=== PATIENT | female | born 1990 | race Caucasian/White ===

== ENCOUNTER 2021-10-22 15:07 | Emergency (ER) | payer OTHER, SELFPAY ==
[2021-10-22 15:50] VITALS: BP 162/116; PULSE 135; RESP 20; TEMP 36.9; O2SAT 98
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
[2021-10-22] MEDS: cloNIDine HCL 0.2 MG TABLET PO (16:17)
--- NOTE | 2021-10-22 16:50 | PC.NURSE ---
1535 CALL FOR HELP CALLED 1536 MEDS FOR [facility] CALLED 1540 [place] [employer] CALLED 1555 KEISHA CALLED FOR TRANSFER LUCIA HACKETT CALLED AND DR CHRISTIN JASSO CALLED
== END 2021-10-22 16:22 | disposition short-term general hospital (02) ==
PROVIDERS: Emergency Provider Emergency Medicine
DX: T76.21XA Adult sexual abuse, suspected, initial encounter (principal); I10 Essential (primary) hypertension
CPT/HCPCS: 99285; A9270

== ENCOUNTER 2021-10-22 16:57 | Emergency (ER) | payer OTHER, SELFPAY ==
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
--- NOTE | 2021-10-22 17:01 | PC.NURSE ---
ISP officer given charge phone # and this RN name and dry boss insulation cupola charger name. ISP officer requesting to go into room and do his report. ISP officer not allowed into pt room d/t [employer] being present in room at the time and having started exam. ISP officer gave number to call when pt available. #[phone]
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
[2021-10-22 17:23] VITALS: BP 161/135; PULSE 124; RESP 16; TEMP 36.6; O2SAT 99
--- NOTE | 2021-10-22 17:25 | PC.NURSE ---
Provider and staff writer introduced themselves to patient and SANE nurse. Patient denies any questions, SANE nurse also denies any needs or questions at this time from staff writer.
--- NOTE | 2021-10-22 19:07 | PC.NURSE ---
Patient report given to Laura, RN. All questions answered at this time. SHARON nurse still at bedside at this time.
--- NOTE | 2021-10-22 20:16 | PC.NURSE ---
SANE in still in room with patient.
[2021-10-22] MEDS: DOXYCYCLINE HYCLATE 100 MG TABLET PO (21:57)
[2021-10-22] MEDS: levonorgestreL 1.5 MG TABLET PO (21:57)
[2021-10-22] MEDS: ONDANSETRON HCL ODT 4 MG TABLET PO (21:58)
[2021-10-22] MEDS: cefTRIAXone 1 GM VIAL 0.5 GM IM (21:58)
[2021-10-22] MEDS: metroNIDAZOLE 250 MG TABLET 2000 MG PO (21:58)
[2021-10-22 23:10] LABS: Hepatitis B Surface Antigen Negative (Negative)
[2021-10-22 23:16] LABS: HAV RESULT Negative (Negative); Hepatitis B Core IgM Result Negative (Negative)
--- NOTE | 2021-10-22 23:20 | PC.NURSE ---
[employer] cab voucher for pt to address provided by pt.
[2021-10-22 23:28] LABS: Hepatitis C Virus Antibody Negative (Negative)
--- NOTE | 2021-10-22 23:34 | PC.NURSE ---
Pt notified of [facility] coming for pickup. Escorted to waiting room by this RN at pt's request. identification and records commander notified of transportation arrival.
== END 2021-10-22 23:35 | disposition home or self-care (01) ==
PROVIDERS: Emergency Provider Nurse Practitioner Family; PCP Internal Medicine
DX: T74.21XA Adult sexual abuse, confirmed, initial encounter (principal); Y07.9 Unspecified perpetrator of maltreatment and neglect
CPT/HCPCS: 36415; 80074; 87491; 87591; 87661; 87808; 96372; 99285; A9270; J0696

== ENCOUNTER 2022-10-18 00:43 | Emergency (ER) | payer OTHER, SELFPAY ==
--- NOTE | ~2022-10-18 | CT_ITS ---
CT Facial Bones and Cervical Spine Clinical Indication: Trauma Technique: Contiguous axial scans were obtained through the facial bones and cervical spine followed by coronal and sagittal reconstructions. Dose reduction technique was used on this scan by utilizing automated exposure control and iterative reconstruction technique. The dose-length product (DLP) was 237.65 mGy-cm. Findings: CT facial bones: No fractures are identified. The visualized paranasal sinuses are clear. Intraorbita l soft tissues appear normal. CT cervical spine: There is mild reversal of the normal cervical lordosis. No fractures or subluxatio n. Unremarkable visualized bony structures are otherwise. There is mild degenerative disc narrowing at C5-C6. No prevertebral soft tissue swelling. Impression: No fracture is seen in the facial bones. No fracture or subluxation of the cervical spine. Reviewed, dictated and finalized at [facility]. Impression: No fracture is seen in the facial bones. No fracture or subluxation of the cervical spine.
--- NOTE | ~2022-10-18 | CT_ITS ---
Non-contrast Head CT History: Head injury COMPARISON: 03/18/2018 Technique: Axial non-contrast imaging of the brain was performed. Dose reduction technique was used on this scan by utilizing automated exposure control and iterative reconstruction technique. The dose -length product (DLP) was 681.00 mGy-cm. Findings: There is no evidence of intracranial hemorrhage, mass lesion, or acute infarct. Brain par enchyma appears normal. The ventricles and subarachnoid spaces are normal in size. The calvarium ap pears normal. The visualized paranasal sinuses and mastoid air cells are clear. Impression: No significant abnormality seen. Reviewed, dictated and finalized at location . Impression: No significant abnormality seen.
--- NOTE | ~2022-10-18 | XR_ITS ---
AP view of the pelvis Clinical history: Pain Findings: No acute fracture or dislocation is seen. Osseous alignment is anatomic. Bilateral hip and SI joint spaces are preserved. Soft tissues are unremarkable. Impression: No significant abnormality is seen. Reviewed, dictated and finalized at location M. Impression: No significant abnormality is seen.
[2022-10-18 00:45] VITALS: BP 148/120; PULSE 126; RESP 20; TEMP 36.6; O2SAT 97
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
[2022-10-18 01:27] LABS: Basophils Absolute Auto 0.06 K/mm3 (0.00-0.10); Basophils Percent Auto 0.8 % (0.0-1.0); Eosinophils Absolute Auto 0.08 K/mm3 (0.02-0.50); Eosinophils Percent Auto 1.1 % (1.0-6.0); Hematocrit 40.6 % (35.0-49.0); Hemoglobin 12.4 g/dL (12.0-15.0); Immature Granulocyte Absolute 0.03 K/mm3 (0.00-0.00); Immature Granulocyte Percent A 0.4 % (0.0-0.0); Lymphocytes Absolute Auto 2.72 K/mm3 (1.10-4.50); Lymphocytes Percent Auto 35.8 % (18.0-42.0); Mean Corpuscular HGB Conc 30.5 g/dL (32.0-36.0); Mean Corpuscular Hemoglobin 22.4 pg (27.0-31.0); Mean Corpuscular Volume 73.3 fL (78.0-102.0); Mean Platelet Volume 9.9 fl (9.2-11.8); Monocytes Absolute Auto 0.86 K/mm3 (0.10-0.90); Monocytes Percent Auto 11.3 % (2.0-11.0); Neutrophils Absolute Auto 3.9 K/mm3 (1.7-7.2); Neutrophils Percent Auto 50.6 % (50.0-70.0); Platelet Count Result 440 K/mm3 (150-420); Red Blood Count 5.54 M/mm3 (4.20-5.40); Red Cell Distribution Width 19.2 % (11.6-14.4); White Blood Count 7.6 K/mm3 (4.8-10.8)
[2022-10-18 01:28] LABS: Appearance Urine Slightly Cloudy (Clear); Bilirubin Urine Negative (Negative); Blood Urine 3+ (Negative); Color Urine Yellow (Yellow); Glucose Urine UA Negative (Negative); Ketones Urine Negative (Negative); Leukocyte Esterase Ur 1+ LEU/UL (Negative); Nitrate Urine Negative (Negative); Protein Urine 2+ (Negative); Specific Grav Ur >= 1.030 (1.010-1.020)
[2022-10-18 01:39] LABS: Add Urine Microscopic? YES; RBC Urine 21-50 /hpf (0-2); Squamous Epithelial Cell Urine Moderate /hpf (Few); WBC Urine 31-50 /hpf (0-3)
[2022-10-18 01:40] LABS: Bacteria Urine 2+ /hpf; Mucus Urine Few /lpf
[2022-10-18 01:41] LABS: Pregnancy On Board Control Positive; Urine Pregnancy Test Negative
[2022-10-18 01:56] LABS: Lactic Acid Reflex 2.1 mmol/L (0.4-2.0)
[2022-10-18 01:57] LABS: Alanine Aminotransferase 30 U/L (14-59); Albumin Level 3.9 g/dL (3.4-5.0); Alkaline Phosphatase 93 U/L (46-116); Anion Gap 17 mmol/L (8-16); Aspartate Amino Transferase 28 U/L (15-37); Bilirubin,Total 0.3 mg/dL (0.00-1.00); Blood Urea Nitrogen 14 mg/dL (7-18); Calcium 9.1 mg/dL (8.5-10.1); Carbon Dioxide 24 mmol/L (21-32); Chloride 102 mmol/L (98-108); Estimated CRCL calculation 59 ml/min; Estimated Glomerular Filt Rate > 60; Glucose 97 mg/dL (70-99); Osmolality Calculated 296 mOsm/kg (285-295); Potassium 2.6 mmol/L (3.5-5.1); Sodium 143 mmol/L (136-145); Total Protein 9.2 g/dL (6.4-8.2)
[2022-10-18 01:58] LABS: Creatine Kinase 194 U/L (26-192); Troponin I 5.7 ng/L (0.00-60.4)
[2022-10-18 01:59] LABS: Thyroid Stimulating Hormone 1.82 uIU/mL (0.36-3.74)
[2022-10-18] MEDS: VERAPAMIL HCL ER 120 MG TABLET 240 MG PO (02:07)
[2022-10-18] MEDS: POTASSIUM CHLORIDE 20 MEQ ER TABLET 40 MEQ PO (02:12)
[2022-10-18] MEDS: SULFAMETHOXAZOLE/TRIMETHOPRIM 800/160 MG DS TABLET 1 TAB PO (02:12)
[2022-10-18] MEDS: LACTATED RINGERS 1,000 ML 999 ML IV CONT ×2 (02:13→04:26)
[2022-10-18] MEDS: KCL 20 MEQ/SW 100 ML 100 ML 50 MEQ IVPB (02:13)
[2022-10-18 02:19] VITALS: BP 145/109; PULSE 78; RESP 20; O2SAT 97
--- NOTE | 2022-10-18 03:00 | PC.NURSE ---
Pt sleeping, VSS at this time, IVF running as per order.
[2022-10-18 03:56] VITALS: BP 147/100; PULSE 75; RESP 18; O2SAT 99
[2022-10-18] MEDS: SPIRONOLACTONE 25 MG TABLET PO (04:02)
[2022-10-18 04:24] LABS: Reflex Lactic Acid Yes or No Add Lactic
[2022-10-18 04:27] LABS: Magnesium 1.7 mg/dL (1.8-2.4)
[2022-10-18 04:28] LABS: Potassium 3.3 mmol/L (3.5-5.1)
[2022-10-18] MEDS: MAGNESIUM SULF 2 GM/WATER 50ML 2 GM/50 ML BAG IVPB (04:36)
[2022-10-18 04:41] LABS: Lactic Acid 1.6 mmol/L (0.4-2.0)
[2022-10-18 05:34] VITALS: BP 141/100; PULSE 78; RESP 20; O2SAT 82
--- NOTE | 2022-10-21 17:55 | PC.NURSE ---
Final urine culture report, Patient discharged on Bactrim DS, culture is susceptible, no change in medication needed.
== END 2022-10-18 05:42 | disposition home or self-care (01) ==
PROVIDERS: Emergency Provider Internal Medicine Critical Care Medicine; PCP Internal Medicine
DX: S00.83XA Contusion of other part of head, initial encounter (principal); N30.00 Acute cystitis without hematuria; E87.8 Other disorders of electrolyte and fluid balance, not elsewhere classified; Y08.09XA Assault by strike by other specified type of sport equipment, initial encounter
CPT/HCPCS: 36415; 70450; 70486; 72125; 72170; 80053; 81001; 81025; 82550; 83605; 83735; 84132; 84443; 84484; 85025; 87077; 87086; 87088; 87186; 96365; 96366; 96367; 99284; A9270; J3475; J3480; J7120

== ENCOUNTER 2022-12-26 21:32 | Emergency (ER) | payer OTHER, SELFPAY ==
--- NOTE | ~2022-12-26 | CT_ITS ---
Noncontrast CT scan of the cervical spine Technique: Multiple contiguous axial [address] images of the cervical spine were obtained and rec onstructed in 2D sagittal and coronal planes on the acquisition scanner. Dose reduction technique was used on this scan by utilizing automated exposure control, adjustment of the mA and/or kV according to patient size. The dose-length product (DLP) was 335.42 mGy-cm. Clinical History: Pain Findings: No fractures or dislocations. There is mild reversal of the normal cervical lordosis. The intervertebral disc spaces are preserved. No prevertebral soft tissue swelling. Impression: No fracture or subluxation of the cervical spine. Mild reversal of the normal cervical lordosis. Reviewed, dictated and finalized at location . Impression: No fracture or subluxation of the cervical spine. Mild reversal of the normal cervical lordosis.
--- NOTE | ~2022-12-26 | XR_ITS ---
Right Hand Technique: PA, oblique, and lateral views were obtained. Clinical History: Pain Findings: No acute fracture or dislocation is seen. Osseous alignment is anatomic. Joint spaces are p reserved. Soft tissues are unremarkable. Impression: Unremarkable right hand. Reviewed, dictated and finalized at location M. Impression: Unremarkable right hand.
--- NOTE | ~2022-12-26 | CT_ITS ---
Non-contrast Head CT History: Head injury COMPARISON: 10/18/2022 Technique: Axial non-contrast imaging of the brain was performed. Dose reduction technique was used on this scan by utilizing automated exposure control and iterative reconstruction technique. The dose -length product (DLP) was 1362.00 mGy-cm. Findings: There is diffuse hypodensity involving predominantly the white matter in the right basal ga nglia and right frontal lobe. No acute intracranial hemorrhage identified. Questionable mild mass eff ect upon the right lateral ventricle, but no midline shift. The calvarium appears normal. The visual ized paranasal sinuses and mastoid air cells are clear. Impression: Extensive hypodensity involving predominantly the white matter in the right basal ganglia and right f rontal lobe, with questionable mild mass effect upon the right lateral ventricle. No intracranial hem orrhage evident. Pre and postcontrast MRI of the brain recommended for further evaluation. Reviewed, dictated and finalized at [facility]. Impression: Extensive hypodensity involving predominantly the white matter in the right bas al ganglia and right frontal lobe, with questionable mild mass effect upon the right lateral ventricle. No intracranial hemorrhage evident. Pre and postcontra st MRI of the brain recommended for further evaluation.
[2022-12-26 21:32] VITALS: PULSE 96; RESP 16; TEMP 36.7; O2SAT 99
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
[2022-12-27 00:46] LABS: Basophils Percent Auto 0.4 % (0.2-1.2); Eosinophils Absolute Auto 0.1 K/mm3 (0-0.3); Eosinophils Percent Auto 0.5 % (0-4.4); Hematocrit 37.1 % (37.0-47.0); Hemoglobin 11.4 g/dL (12.0-15.0); Immature Granulocyte Absolute 0.05 K/mm3 (0.00-0.031); Immature Granulocyte Percent A 0.4 % (0-0.5); Lymphocytes Absolute Auto 2.29 K/mm3 (0.9-3.2); Lymphocytes Percent Auto 20.4 % (18.3-44.2); Mean Corpuscular HGB Conc 30.7 g/dl (32-36); Mean Corpuscular Hemoglobin 24.4 pg (26-34); Mean Corpuscular Volume 79.4 fl (80-100); Mean Platelet Volume 10.6 fl (7.4-10.4); Monocytes Percent Auto 8.6 % (2.6-8.5); Neutrophils Absolute Auto 7.8 K/mm3 (1.3-6.7); Neutrophils Percent Auto 69.7 % (45.5-73.1); Platelet Count Result 321 k/mm3 (150-375); Red Blood Count 4.67 M/mm3 (4.2-5.4); Red Cell Distribution Width 18.2 % (11.5-14.5); White Blood Count 11.2 K/mm3 (4.5-10.0)
[2022-12-27 00:54] LABS: Anion Gap 12 mmol/L (8-16); Blood Urea Nitrogen 12 mg/dL (7-17); Calcium 8.4 mg/dL (8.4-10.2); Carbon Dioxide 19 mmol/L (22-30); Chloride 107 mmol/L (98-107); Estimated CRCL calculation 71 ml/min; Estimated Glomerular Filt Rate > 60; Glucose 85 mg/dL (65-110); Potassium 3.3 mmol/L (3.4-5.0); Sodium 138 mmol/L (137-145)
[2022-12-27 00:55] LABS: Ethanol 24 mg/dL (<10)
[2022-12-27] MEDS: ACETAMINOPHEN 500 MG TABLET 1000 MG PO (01:00)
--- NOTE | 2022-12-27 01:09 | ECG_ITS ---
Measurements Intervals [place] Rate: 70 P: 44 OH: 127 QRS: 1 QRSD: 96 T: 65 QT: 370 QTc: 399 Interpretive Statements SINUS RHYTHM WITH SINUS ARRHYTHMIA POSSIBLE LEFT ATRIAL ENLARGEMENT DELAYED PRECORDIAL R/S TRANSITION BORDERLINE ECG NO PREVIOUS ECG AVAILABLE FOR COMPARISON Electronically Signed On 12-27-2022 6:43:04 CDT by Andrey Pradhan D.O.
[2022-12-27 01:22] LABS: Magnesium 1.7 mg/dL (1.6-2.3)
[2022-12-27 02:45] LABS: Barbiturate Screen Urine Negative (Negative); Benzodiazepines Screen Urine Negative (Negative)
[2022-12-27] MEDS: POTASSIUM CHLORIDE 20 MEQ PACKET (FOR LIQUID) PO (02:55)
[2022-12-27 02:56] LABS: Cannabinoid Screen Urine Negative (Negative); Cocaine Screen Urine Negative (Negative); Methadone Screen Urine Negative (Negative); Opiate Screen Urine Negative (Negative); Phencyclidine Screen Urine Negative (Negative)
[2022-12-27 03:34] LABS: Pregnancy On Board Control Positive; Urine Pregnancy Test Negative
[2022-12-27 03:51] LABS: Amphetamine Screen Urine Positive (Negative)
[2022-12-27 07:01] VITALS: BP 169/123; PULSE 88; RESP 12; O2SAT 100
--- NOTE | 2022-12-27 07:19 | PC.NURSE ---
care coordination contacted regarding pts transportation home.
--- NOTE | 2022-12-27 07:31 | PCCCNOTE ---
Call received requesting transportation assistance for pt. She was evicted from her home and was to be out yesterday. She needs to return there and get her stuff, which may take a little time, and then plans to go to [place]. She can get a ride to [place] but doesn't have a ride home from here. Cab voucher for [address] [place] given to charge nurse.
== END 2022-12-27 08:28 | disposition home or self-care (01) ==
PROVIDERS: Emergency Provider Physician Assistant; PCP Internal Medicine
DX: S69.91XA Unspecified injury of right wrist, hand and finger(s), initial encounter (principal); S09.90XA Unspecified injury of head, initial encounter; F15.10 Other stimulant abuse, uncomplicated; R94.31 Abnormal electrocardiogram [ECG] [EKG]; Y04.2XXA Assault by strike against or bumped into by another person, initial encounter
CPT/HCPCS: 36415; 70450; 72125; 73130; 80048; 80307; 81025; 83735; 85025; 93005; 99284; A9270

== ENCOUNTER 2025-04-14 10:13 | Outpatient (CLI) | payer MEDICAID, SELFPAY ==
--- OUTSIDE RECORDS SUMMARY | 2025-04-14 10:31 | XMS_ITS | Clinical Summary ---
Author Organization [facility] Address [address] [place] [address] Care Team Providers Care Plastics Repairer Name Role Phone Nilson Ro MD Primary Care Provider [phone] Social History Tobacco Use Types Packs/Day Years Used Date Smoking Tobacco: Never Assessed Comments Unknown Sex and Gender Information Value Date Recorded Sex Assigned at Not on file Legal Sex Female 2:49 PM CDT Gender Identity Not on file Sexual Orientation Not on file Plan of Treatment Health Maintenance Due Date Last Done Comments Hepatitis C Virus (HCV) Screening 1990 Varicella Immunization (1 of 2 - 13+ 2-dose series) 12/11/2003 Hepatitis B Immunization (1 of 3 - 19+ 3-dose series) 2009 Pap Smear 12/11/2011 Cervical Cancer Screening (CCS) 2020 HPV/Cotest 2020 Influenza Immunization (#1) 2024 09/0 09/2017, 03/29/2015 SARS-COV-2 Immunization ( season) 2024 Respiratory Syncytial Virus (RSV) Immunization (Adult) (1 - 1-dose 75+ series) 2065 DTaP/Tdap/Td Immunization Discontinued 08/02/2015 TdaP Immunization Completed 08/02/2015 Human Papillomavirus (HPV) Immunization (No Doses Required) Completed Meningococcal Immunization (ACWY) Aged Out No longer eligible based on patient's age to complete this topic Pneumococcal Immunization Combined Aged Out No longer eligible based on patient's age to complete this topic Rotavirus Immunization Aged Out No lo nger eligible based on patient's age to complete this topic Insurance MEDICAID [employer] [facility] Care Teams Plastics Repairer Relationship Specialty Start Date End Date Nilson Ro MD [address] [place] [address] PCP - General Internal Medicine 11/04/20
[2025-04-14 11:09] LABS: Strep Group A RT-PCR NOT DETECTED (Negative)
[2025-04-14 11:22] LABS: Influenza A QL RT-PCR Positive (Negative); Influenza B QL RT-PCR Negative (Negative); RSV RNA, RT-PCR Negative (Negative); SARS-CoV-2 RNA PCR Negative (Negative)
== END 2025-04-14 10:14 | disposition home or self-care (01) ==
PROVIDERS: PCP Internal Medicine; Visit Provider Nurse Practitioner Family
DX: R09.81 Nasal congestion (principal)
CPT/HCPCS: 87637; 87651